=== PATIENT | male | born 1990 | race Caucasian/White ===

== ENCOUNTER 2016-07-06 11:24 | Emergency (ER) | payer OTHER ==
[~2016-07-06] VITALS: Ht 188 cm; Wt 111.1 kg
[2016-07-06 12:13] LABS: ABSOLUTE BASOPHIL COUNT 0 /CUMM (0.0-0.2); ABSOLUTE EOSINOPHIL COUNT 0.5 /CUMM (0.0-0.7); ABSOLUTE GRANULOCYTE CT 2.8 /CUMM (1.4-6.5); ABSOLUTE LYMPH COUNT 1.9 /CUMM (1.2-3.4); ABSOLUTE MONOCYTE COUNT 1.2 /CUMM (0.10-0.60); BASOPHIL % 0.4 % (0.0-2.0); GRANULOCYTE % 43.8 % (42.2-75.2); HEMATOCRIT 50.8 % (42-52); MEAN CORPUSCULAR HGB 27.9 PG (27.0-31.0); MEAN CORPUSCULAR HGB CONC 33.5 G/DL (33.0-37.0); MEAN CORPUSCULAR VOLUME 83.1 FL (80.0-94.0); MEAN PLATELET VOLUME 8.4 FL (7.4-10.4); PLATELET COUNT 229 /CUMM (130-400); RBC DISTRIBUTION WIDTH 13.7 % (11.5-14.5); RED BLOOD CELL CT 6.12 /CUMM (4.70-6.10); WHITE BLOOD CELL COUNT 6.5 /CUMM (4.8-10.8)
--- NOTE | 2016-07-06 13:54 | ED GI/GU/ABDOMINAL COMPLAINT ---
History of Present Illness General Chief Complaint: Abdominal Pain/Flank Pain Stated Complaint: SENT BY DR MCCLELLAN FOR EVAL OF ABDOMINAL PAIN Source: patient, family, old records Exam Limitations: no limitations Allergies Coded Allergies: Sulfa (Sulfonamide Antibiotics) (Severe, ANAPHYLAXIS 07/06/16) Reconcile Medications Hyoscyamine (Levsin) 0.125 MG TABLET 1 TAB PO TID Abdominal discomfort Metoclopramide HCl (Reglan) 10 MG TABLET 1 TAB PO TID Nausea 30 minutes before meals and bedtime Metronidazole 500 MG TABLET 1 TAB PO TID Abdominal Infection Triage Note: PT SENT IN BY DR. MCCLELLAN FOR EVAL OF ABD CRAMPING AND POOR PO INTAKE, DID VOMIT, BUT NOT TODAY. PT RECENTLY CAME BACK FROM [facility] ON SUNDAY. +DIARRHEA X 3, DENIES BLOOD. R AND L LOWER ABD CRAMPING THAT DOES COME AND GO. PT DENIES FEVERS. Triage Nurses Notes Reviewed? yes HPI: Mr Oneil is a 25-year-old with past medical history of prostate infection approximately 5 years ago who recently came back from a trip abroad to [facility] on 07/01/2016 presents to the emergency department with worsening vomiting, diarrhea and abdominal pain. Patient reports that his symptoms began approximately 12 PM the day after his trip. Since then he has continued to feel worsening stomach pain, vomiting, decreased PO intake and abdominal pain. His pain is intermittent in nature and descrobed as a crampy pain. From 11 PM Sunday till early 5 AM Sunday the patient had significant amount of diarrhea and dry heaving. Patient denies any presence of hematochezia and describes his stool as loose. Patient denies any fever although endorses chills, nausea, vomiting. This morning the patient went to visit his primary care physician Dr. Chang who instructed him to come to the emergency department for further workup. (AMELIA CARD,[facility] [place]) Vital Signs & Intake/Output Vital Signs & Intake/Output Vital Signs Date Time Temp Pulse Resp B/P B/P Pulse O2 O2 Flow FiO2 Mean Ox Delivery Rate 07/06 1724 97.4 81 18 126/74 100 07/06 1420 97.1 88 18 139/87 98 07/06 1139 97.5 101 15 148/79 98 Room Air Room Air Past History Travel History Traveled to [place] past 21 day No Medical History Any Pertinent Medical History? 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 Yes (Recent International Travel) (SANDER CISNEROS MD) Review of Systems Review of Systems Constitutional: Reports: chills, weakness. Denies: diaphoresis, fever, malaise. Respiratory: Denies: see HPI, cough, hemoptysis, orthopnea, short of breath, sputum production. Cardiovascular: Denies: chest pain, edema, orthopena, palpitations, peripheral edema. GI: Reports: abdominal pain, diarrhea, bowel incontinence, nausea, changes in stool, vomiting. Denies: bloating, distention. Genitourinary: Denies: discharge, dysuria, frequency, hematuria, hesitation. Musculoskeletal: Denies: back pain, gout, joint pain, joint swelling, muscle pain. Skin: Denies: change in skin color, change in hair/nails, dryness, erythema, lesions. (SANDER CISNEROS MD) Physical Exam Physical Exam General Appearance: well developed/nourished, no apparent distress, alert, anxious, comfortable, mild distress Head: atraumatic Eyes: Bilateral: PERRL, EOMI. Respiratory: normal breath sounds, chest non-tender, no respiratory distress, quiet respiration Cardiovascular: regular rate/rhythm Peripheral Pulses: 4+ dorsalis pedis (R), 4+ dorsalis pedis (L) Gastrointestinal: normal bowel sounds, guarding, rebound (Left Lower Quadrant ), tenderness, Nguyen + Rectal: deferred Core Measures ACS in differential dx? No Severe Sepsis Present: No Septic Shock Present: No (SANDER CISNEROS MD) Progress Differential Diagnosis: appendicitis, diverticulitis, epididymitis, gastritis, pancreatitis, prostatitis Initial ED EKG: none (SANDER CISNEROS MD) Plan of Care: Orders Procedure Date/time Status Add-on Test (ER Only) 07/06 1610 Active CULTURE,STOOL 07/06 1141 Active LIPASE 07/06 1141 Complete COMPREHENSIVE METABOLIC PANEL 07/06 1141 Complete CBC WITHOUT DIFFERENTIAL 07/06 1141 Complete AMYLASE 07/06 1141 Complete Laboratory Tests 07/06/16 1152: Anion Gap 13, Estimated GFR > 60, BUN/Creatinine Ratio 11.8, Glucose 90, Calcium 9.4, Total Bilirubin 2.0 H, AST 67 H, ALT 108 H, Alkaline Phosphatase 58, Total Protein 7.4, Albumin 4.6, Globulin 2.8, Albumin/Globulin Ratio 1.6, Amylase 42, Lipase 47, CBC w Diff MAN DIFF ORDERED, RBC 6.12 H, MCV 83.1, MCH 27.9, RDW 13.7, MPV 8.4, Gran % 43.8, Lymphocytes % 29.0, Monocytes % 18.8 H, Eosinophils % 8.0 H, Basophils % 0.4, Absolute Granulocytes 2.8, Segmented Neutrophils 38 L, Band Neutrophils 2, Absolute Lymphocytes 1.9, Lymphocytes 39, Monocytes 11 H, Absolute Monocytes 1.2 H, Eosinophils 10 H, Absolute Eosinophils 0.5, Absolute Basophils 0, Platelet Estimate ADEQUATE, Normocytic RBCs VERIFIED, Normochromic RBCs VERIFIED, PUBS MCHC 33.5 Microbiology 07/06 1332 STOOL: Stool Culture - RECD Departure Departure Disposition: HOME OR SELF CARE Condition: Stable Clinical Impression Primary Impression: Acute gastroenteritis Referrals: VY CARD,FLAKITO (PCP/Family) Additional Instructions: Over the next 12-24 hours please maintain a clear liquid diet. Please continue to hydrate via Gatoride or Oral Hydration Salts. Gradually introduce foods as tolerated. Please follow-up with your primary care physician within one week following discharge. Should your nausea, vomiting or diarrhea continue to worsen please come back to the emergency department for additional workup. Should you have any reactions from the medication that we have prescribed please stop taking them and come back to the emergency department. Departure Forms: Customer Survey General Discharge Information Prescriptions: Current Visit Scripts Hyoscyamine (Levsin) 1 TAB PO TID #20 TAB Metoclopramide HCl (Reglan) 1 TAB PO TID #20 TAB 30 minutes before meals and bedtime Metronidazole 1 TAB PO TID #21 TAB (AMELIA CARD,[place]) Resident Co-Sign Statement Statement: ED Attending supervision documentation- [X] I saw and evaluated the patient. I have also reviewed all the pertinent lab results and diagnostic results. I agree with the findings and the plan of care as documented in the Resident's documentation. [] I have reviewed the ED Record and agree with the Resident's documentation. [] Additions or exceptions (if any) to the Resident's note and plan are summarized below: [] (NATI CARD,ARMANDO [employer]) ED Attending Observation Initial Observation Note: I have seen and personally examined MARIZA ONEIL on 07/06/16 at 1723. I agree with the current emergency department documentation. The disposition (admission or discharge) is uncertain at this time, he needs a period of observation for the following reason(s): The ED Nurse caring for this patient has been personally informed as to what the patient is being observed for. (AMELIA CARD,SANDER)
[2016-07-06] MEDS ORDERED: LEVSIN0.125 M1 PO (15:15)
[2016-07-06] MEDS ORDERED: REGLAN10 M1 PO (15:15)
--- NOTE | 2016-07-06 15:33 | CT SCAN REPORT ---
EXAMINATION: CT ABDOMEN AND PELVIS WITH CONTRAST CLINICAL INFORMATION: Significant guarding, rebound tenderness COMPARISON: None TECHNIQUE: Multidetector volumetric imaging was performed of the abdomen and pelvis before and after the IV administration of 95 mL of Optiray 320 intravenous contrast. Sagittal and coronal reformatted images were obtained on the technologist's workstation. DLP: 667.33 mGy-cm FINDINGS: LUNG BASES: The visualized lung bases are unremarkable. LIVER, GALLBLADDER, AND BILIARY TREE: The liver is normal in size, shape, and attenuation. No focal hepatic lesion or biliary ductal dilatation is present. The gallbladder is unremarkable with no evidence of radiopaque gallstones, gallbladder wall thickening, or obvious pericholecystic inflammatory changes. PANCREAS: Unremarkable. SPLEEN: Unremarkable. ADRENAL GLANDS: Unremarkable. KIDNEYS AND URETERS: The kidneys are normal in size, shape, and attenuation. No hydronephrosis, hydroureter, or calculi seen. No perinephric stranding. BLADDER: Unremarkable. GASTROINTESTINAL TRACT: No evidence of bowel obstruction. No appreciable bowel wall thickening is seen, though assessment in some regions is limited due to luminal collapse. The appendix is unremarkable, such as seen on sagittal image 86. No free air is identified. ABDOMINAL WALL: No significant hernia is appreciated. LYMPH NODES: There are numerous subcentimeter lymph nodes throughout the mesentery, some of which measure near the upper limits of normal in size. VASCULAR: Unremarkable. PELVIC VISCERA: Unremarkable. Trace pelvic free fluid is noted. OSSEOUS STRUCTURES: Unremarkable. IMPRESSION: Numerous subcentimeter lymph nodes throughout the mesentery, some of which measure near the upper limits of normal in size. These may be reactive in nature, such as from mesenteric adenitis or other inflammatory/infectious etiology; follow-up imaging may be performed in 3-6 months to assess for resolution and exclude developing lymphoma. No focal bowel abnormality identified. Trace pelvic free fluid. Normal appendix.
[2016-07-06] MEDS ORDERED: METRONIDAZOLE500 M1 PO (17:10)
[2016-07-06 17:24] VITALS: BP 126/74
== END 2016-07-06 17:34 ==
LOC: ERH 11:24
PROVIDERS: Physician Assistant
DX: K52.9 Noninfective gastroenteritis and colitis, unspecified (principal)
CPT/HCPCS: 74177; 87045; 96374; J2765